=== PATIENT | female | born 1985 | race American Indian/Alaskan Native ===

== ENCOUNTER 2019-04-25 09:40 | Emergency (ER) | payer OTHER, MEDICAID ==
[2019-04-25] MEDS ORDERED: NAPROSYN PO ONE (12:42)
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
[2019-04-25 14:58] VITALS: BP 127/68
== END 2019-04-25 14:58 | disposition home or self-care (01) ==
LOC: ED 09:40
DX: S16.1XXA Strain of muscle, fascia and tendon at neck level, initial encounter (principal); S09.90XA Unspecified injury of head, initial encounter; R07.81 Pleurodynia; M25.511 Pain in right shoulder; F12.90 Cannabis use, unspecified, uncomplicated; Z79.899 Other long term (current) drug therapy; V89.2XXA Person injured in unspecified motor-vehicle accident, traffic, initial encounter; Y93.89 Activity, other specified; Y92.488 Other paved roadways as the place of occurrence of the external cause; Y99.8 Other external cause status
CPT/HCPCS: 36415; 70450; 84702; 99284